=== PATIENT | female | born 1980 | race African-American/Black ===

== ENCOUNTER → 2023-07-02 08:01 | Outpatient (REF) | payer BC, SELFPAY ==
[2023-07-02] MEDS: LEXISCAN 0.400000000000000022 MG IV (10:37)
[2023-07-02] MEDS: FLUSH (NSS) 1 FLUSH IV (10:37)
== END ==
LOC: RCS 08:01
PROVIDERS: ATTENDING PHYSICIAN Nurse Practitioner Family
DX: M72.2 Plantar fascial fibromatosis (principal); R07.9 Chest pain, unspecified
CPT/HCPCS: 78452; 93017; A9500; J2785

== ENCOUNTER → 2024-07-07 14:12 | Outpatient (REF) | payer OTHER, BC, SELFPAY | LOC: WDC 14:12 | PROVIDERS: ATTENDING PHYSICIAN Nurse Practitioner Family | DX: Z12.31 Encounter for screening mammogram for malignant neoplasm of breast (principal) | CPT/HCPCS: 76642; 77063; 77067 ==

== ENCOUNTER → 2024-11-06 07:01 | Outpatient (REF) | payer OTHER, BC, SELFPAY | LOC: RAD 07:01 | PROVIDERS: ATTENDING PHYSICIAN Nurse Practitioner Family | DX: R10.9 Unspecified abdominal pain (principal) | CPT/HCPCS: 74177; Q9967 ==

== ENCOUNTER 2024-11-23 07:57 | Inpatient (IN) | payer OTHER, BC, SELFPAY ==
[2024-11-20 23:36] VITALS: BP 127/84
--- NOTE | 2024-11-21 00:21 | ED.GENMED ---
History of Present Illness
General
Chief Complaint: Abdominal Pain
Source: patient
Time Seen by Provider: 11/20/24 23:57
History of Present Illness
History of Present Illness:
43-year-old female presents emergency room complaint nausea vomiting diarrhea. Symptoms began at 3 PM. Also complaining of some abdominal discomfort and chest discomfort. No fever or chills. No recent travel. No recent antibiotic use. Patient
has been able to keep down any liquids. She has had C-sections and a cholecystectomy in the past.
Phy Exam
Physical Exam
Physical Exam:
General: Awake, Alert, Oriented X3. Appears uncomfortable from nausea
Vitals: unremarkable
Head: Atraumatic
Eyes: Pupils equal, EOMI
Throat: Airway intact, no exudates, dry mucosa
Neck: Trachea midline
Lungs: Clear and equal b/l
Heart: Regular rate, no murmurs
Abd: Soft, mildly tender bilateral upper abdominal quadrants, No pulsatile mass
Neuro: Nonfocal
Skin: Warm, dry, no rash
Extremities: pulses equal b/l, no edema
Course
Orders/Labs/Results
Orders:
Orders
11/20/24 23:42
Electrocardiogram (*1) Urgent
Reason for Study: Abdominal Pain
EKG- Treatment ONCE
IV Insert/Care/Rem.- Treatment PRN
Complete Blood Count/With Diff Urgent
Comprehensive Metabolic Panel Urgent
Lipase Urgent
Urinalysis Reflex To Culture Urgent
Date Specimen was Collected: 11/20/24
Time Specimen was Collected: 23:42
11/21/24 00:10
0.9% Sodium Chloride 1000 ml [Nss] 1,000 ml IV BOLUS
Ketorolac [Toradol] 15 mg IV NOW STA
Ondansetron Injectable [Zofran] 4 mg IV NOW STA
Test Result ONCE
11/21/24 00:38
HCG, Serum Qualitative Screen Urgent
11/21/24 00:58
CT Abd/pelvis W Iv Cont Urgent
Comment:
Reason For Exam: Upper abdominal pain
HYDROmorphone [Dilaudid] 0.5 mg IV NOW STA
11/21/24 01:55
Urine Microscopic Reflex Cult Urgent
11/21/24 02:27
Ampicillin/Sulbactam 3 grams IVPB NOW Ampicillin/Sulbactam 3 G [Unasyn] 3 gm 0.9% Sodium Chloride 100 ml [Nss] 100 ml IV NOW
Abnormal Lab Results
11/21/24 11/21/24
00:38 01:55
WBC 13.7 H 10^3/uL
(4.8-10.8)
RBC 5.53 H 10^6/uL
(4.20-5.40)
MCV 71.4 L fL
(81.0-99.0)
MCH 22.2 L pg
(27.0-31.0)
MCHC 31.1 L g/dL
(33.0-37.0)
RDW 15.8 H %
(11.5-14.5)
Plt Count 423 H 10^3/uL
(130-400)
Abs Immat Gran (auto) 0.1 H 10^3/uL
(0-0.05)
Absolute Neuts (auto) 13.1 H 10^3/uL
(1.4-6.5)
Absolute Lymphs (auto) 0.3 L 10^3/uL
(1.2-3.4)
Neutrophils % 95.3 H %
(42.2-75.2)
Lymphocytes % 2.5 L %
(20.5-51.1)
Monocytes % 1.5 L %
(1.7-9.3)
Chloride 108 H mmol/L
(98-107)
Glucose 114 H mg/dl
(70-99)
Calcium 10.7 H mg/dl
(8.4-10.2)
Ur Occult Blood Reflex 2+ A
(Negative)
Urine Albumin (Reflex) 1+ A
(Neg - Trace)
11/21/24 00:38
11/21/24 00:38
Vital Signs
Initial and Last Documented VS:
Initial Vital Signs
Temp Pulse Resp BP Pulse Ox
98.1 F 100 24 127/84 100
11/20/24 23:36 11/20/24 23:36 11/20/24 23:36 11/20/24 23:36 11/20/24 23:36
Last Documented Vital Signs
Temp Pulse Resp BP Pulse Ox
98.1 F 93 22 118/70 99
11/20/24 23:36 11/21/24 01:11 11/21/24 01:11 11/21/24 01:11 11/21/24 01:11
MDM/Problems Addressed
Differential Diagnosis Includes:
Viral gastroenteritis, gastritis, pancreatitis
MDM/Problems Addressed:
Patient's labs showing mild elevation white blood cell count. Chemistries are reassuring. CT shows colitis. Patient did not have significant improvement in her abdominal pain with Toradol and Zofran. She had mild improvement with 0.5 mg of
Dilaudid. Will director of radio services another 0.5 mg. Will hospitalize cover with IV antibiotics
*Radiology
Radiology exam reviewed: radiology read reviewed (vision report)
*Pulse Oximetry
SaO2: 100
Oxygen Mode of Delivery: Room air
Patient hypoxic: no
*EKG
Interpreted by ED Provider?: Yes
Heart Rate: 89
Rate: normal
Rhythm: sinus
Davison: normal axis
Interval: normal interval
QRS Pattern: normal QRS
Ischemia: no ischemia
*Field Assistant Interpretation
Rate: normal
Interpretation: normal
Rhythm: sinus
*Critical Care Note
Total Time (30-74mins, 75-104mins- exclusive of procedures): Not Applicable
ED Attending Note
-
Portions of this chart may have been created with voice recognition software.� Occasional wrong word or��sound alike� substitutions may have occurred due to the inherent limitations of voice recognition software.
Discharge Plan
Departure
Patient Disposition: Admit
Date of Disposition: 11/21/24
Time of Disposition: 02:27
Admit to: Med/Surg
Presentation/result/management discussed w/ accepting MD/DO: Hospitalist
Condition: Fair
Discharge Problem:
Abdominal pain, Colitis
Prescriptions:
No Action
sertraline 100 mg Tablet
100 mg PO DAILY
tramadol 50 mg Tablet
50 mg PO Q8H PRN (Reason: pain)
amlodipine 10 mg Tablet
10 mg PO DAILY
ibuprofen 200 mg Tablet
200 mg PO Q6H PRN (Reason: pain)
montelukast [Singulair] 10 mg Tablet
10 mg PO DAILY
albuterol sulfate [Ventolin HFA] 90 mcg/actuation Hfa Aerosol Inhaler
2 puff INHALATION QID PRN (Reason: Asthma)
gabapentin 100 mg Tablet
200 mg PO DAILY
Linzess 145 mcg Capsule
290 mcg PO DAILY
gabapentin 400 mg Tablet
400 mg PO HS
bupropion HCl [Wellbutrin SR] 100 mg Tablet Sustained-Release 12 Hr
100 mg PO BID
Referrals:
Dave Bullard CRNP [Family Provider, Family Practice]
Interventions
Interventions:
*Risk Screen - Suicide Last Done: 11/20/24 23:36
*General Assessment Last Done: 11/20/24 23:36
*Neglect/Abuse Screening Last Done: 11/20/24 23:36
*ED- Fall Risk Assessment Last Done: 11/20/24 23:36
*ED COVID-19 Vaccine History Last Done: 11/20/24 23:36
IG-Pynvou-Itpihfunxz Assessment Last Done: 11/21/24 00:42
Discharge Date and Time
Print Language: TURKMEN
[2024-11-21] MEDS: ZOFRAN 4 MG IV ×6 (00:33→23:49)
[2024-11-21] MEDS: TORADOL 15 MG IV ×3 (00:33→15:06)
[2024-11-21] MEDS: NSS 1000 IV ×4 (00:33→23:49)
[2024-11-21 01:00] LABS: Hematocrit 39.5 % (37.0-47.0); Hemoglobin 12.3 g/dL (12.0-16.0); Mean Corp Hgb Conc. 31.1 g/dL (33.0-37.0); Mean Corpuscular Volume 71.4 fL (81.0-99.0); Nucleated Red Blood Cells % 0 %; Platelet Count 423 10^3/uL (130-400); Red Cell Dist. Width 15.8 % (11.5-14.5)
[2024-11-21 01:07] LABS: HCG, Serum Qualitative Screen Negative
[2024-11-21 01:09] LABS: ALT (SGPT) 22 U/L (0-35); AST (SGOT) 26 U/L (14-36); Albumin 4.5 g/dl (3.5-5.0); Alkaline Phosphatase 94 U/L (38-126); Blood Urea Nitrogen 10 mg/dl (7-17); Calcium 10.7 mg/dl (8.4-10.2); Carbon Dioxide 23 mmol/L (22-30); Chloride 108 mmol/L (98-107); Glucose 114 mg/dl (70-99); Lipase 26 U/L (23-300); Potassium 4.3 mmol/L (3.5-5.1); Sodium 141 mmol/L (135-145); Total Protein 7.7 g/dl (6.3-8.2); eGFR > 60.00
[2024-11-21] MEDS: DILAUDID 0.5 MG IV ×5 (01:10→23:37)
[2024-11-21 01:11] VITALS: BP 118/70
[2024-11-21 02:08] LABS: Urine Character Clear (Clear)
--- NOTE | 2024-11-21 02:33 | HPS.HSE ---
Family Physician
-
Family Physician: JOSIANE Middleton
Chief Complaint
-
Abdominal pain
History of Present Illness
43-year-old female with past medical history significant for hypertension, mild to be an asthma, depression, history of chronic pain secondary to trigeminal neuralgia presents to the emergency department with acute onset of gastrointestinal symptoms
specifically abdominal pain nausea and vomiting with diarrhea.
Patient reports that been in usual state of health this a.m. She had fresh fruit from source that she had not had before this a.m. At around 3 PM this afternoon she started having projectile vomiting. It was nonbloody. Later on it did turn
bilious as she had incessant vomiting. He then reported epigastric abdominal discomfort that has been persistent since. He has had multiple rounds of watery stools without blood or mucus. She states she has had diarrhea up to about 6 times prior
to come to the emergency department but has not had any since she has been in the ED. She is unable to tolerate p.o. due to incessant nausea and vomiting as well as ongoing abdominal pain. She has not had any fevers or chills. She denies any
rash. She has no recent changes in medications. She has no recent travels and no sick contacts. History of IBS which has been improving over the last few months. No history of IBD.
In the emergency department, patient was afebrile, blood pressure was 120/70 with a pulse of 93 and she was satting 99% on room air. UA was unremarkable. She has a leukocytosis to 13.7, hemoglobin and platelets were normal. Electrolytes
BUN/creatinine were normal. CT of the abdomen and pelvis showing mild diffuse colonic wall thickening suggestive of diffuse colitis, no bowel obstruction. Appendix is unremarkable. Status post cholecystectomy with a normal pancreas and kidneys.
Medical History
Past Medical History
Past Medical History: Reports Asthma (Mild intermittent), HTN, Psychiatric (Depression) and Other (Dysmenorrhea, uterine fibroids, history of trigeminal neuralgia)
Past Surgical History: Reports Cholecystectomy and
Social History
Tobacco: Non-smoker
Alcohol: None
Drug: None
Family History
Family History: Not pertinent
Allergies / Home Medications
Allergies reflects when Allergies were last updated in [employer].
Home Medications with original date entered in [employer]
Allergy/Medication List:
Allergies
Allergy/AdvReac Type Severity Reaction Status Date / Time
No Known Allergies Allergy Verified 11/20/24 23:36
Home Medications
Benadryl Allergy 25 MG 1 tablet at bedtime as needed Orally Once a day Active
Sertraline HCl 100 MG 2 tablet Orally Once a day for 90 days Active
Pantoprazole Sodium 40 MG 1 tablet Orally Once a day PRN for 30 days Active
Gabapentin 200 mg tablets, 200 mg a.m., 20 mg p.m., half 100 mg at bedtime p.o.
Tramadol 50 mg tablets, 50 mg p.o. every 8 hours as needed
Ventolin HFA 108 (90 Base) MCG/ACT 2 puffs as needed Inhalation every 4 hrs for 30 days Active
Wegovy 1.7 MG/0.75ML 0.75 mL Subcutaneous Once weekly for 30 days Sep, Mar, Active
Wellbutrin SR 150 MG as directed Orally Twice a Day Active
Amlodipine 5 mg tablet, 5 mg p.o. daily
Review of Systems
-
Constitutional: Reports No Symptoms
EENT: Reports No Symptoms
Respiratory: Reports No Symptoms
Cardiac: Reports No Symptoms
Abdomen/GI: Reports Abdominal Pain, Nausea, Vomiting and Diarrhea
: Reports No Symptoms
Musculoskeletal: Reports No Symptoms
Skin: Reports No Symptoms
Neurological: Reports No Symptoms
Endocrine: Reports No Symptoms
Hematologic/Lymphatic: Reports No Symptoms
Psych: Reports No Symptoms
Physical Exam
Vital Signs
Vital Signs
Temp Pulse Resp BP Pulse Ox
98.1 F 93 22 118/70 99
11/20/24 23:36 11/21/24 01:11 11/21/24 01:11 11/21/24 01:11 11/21/24 01:11
Physical Exam
General: Well Developed, Well Nourished and No Apparent Distress
HEENT: NormoCephalic, Moist mucous membranes and Atraumatic
Respiratory: Clear
Cardiac: S1/S2 and Regular Rhythm; No Murmur or Rub
GI: Soft, Non Tender, Non Distended and Normal Bowel Sounds; No Organomegaly
Rectal: Deferred by Provider
Genito-urinary: Deferred by me
Musculoskeletal: No Clubbing, No Cyanosis and No Edema
Skin: No Rash
Neuro: Nonfocal/grossly intact
Laboratory Results
-
11/21/24 00:38
11/21/24 00:38
Laboratory Results
Total Bilirubin 0.6 mg/dl (0.2-1.3) 11/21/24 00:38
AST 26 U/L (14-36) 11/21/24 00:38
ALT 22 U/L (0-35) 11/21/24 00:38
Alkaline Phosphatase 94 U/L (38-126) 11/21/24 00:38
Lipase 26 U/L (23-300) 11/21/24 00:38
Data Reviewed
-
CT Scan: Report Reviewed by me
Lab Data: Labs Reviewed by me
Old Records: Reviewed
Impression/Plan
-
IMPRESSION:
43-year-old female who presents with acute abdominal symptoms including abdominal pain nausea vomiting and diarrhea, normal labs, no fevers. She has a mild leukocytosis to 13. CT scan shows colitis but otherwise unrevealing. Clinical picture is
consistent with acute gastroenteritis of toxic or viral etiology. Currently not tolerating p.o. but exam is otherwise benign.
PLAN:
Acute gastroenteritis - Suspect viral vs food poisoning. HD stable. No further diarrhea. Having dry heaves and abdominal pain. WBC 13. BNP, LFTs, Lipase WNL. CT suggestive of diffuse colitis.
- admit to med/surg observation
- continue IV NS for now given incessant vomiting
- PPI IV with famotidine IV HS
- antiemetics (QTc ok) prn
- pain control w/ acetaminophen, toradol, dilaudid prn
- continue her gabapentin as tolerated
- monitor off abx for now, no diverticulitis or focal colitis, trend cbc
- no stool sample for eval.
DVT PPX - lovenox sq
Code status - Full Code
[2024-11-21 02:38] LABS: Urine Squamous Cell >30 /LPF (Few)
[2024-11-21 02:39] LABS: Urine White Cell None Seen /HPF (0-5)
[2024-11-21 02:50] VITALS: BP 127/82
[2024-11-21] MEDS: UNASYN IV (02:58)
[2024-11-21 04:17] VITALS: BP 139/82
[2024-11-21 04:18] VITALS: BMI 29.5
--- NOTE | 2024-11-21 06:32 | PTCARENOTE ---
Pt arrived to unit at 0410 from ED on stretcher. Pt ambulated to bed without assist, gait steady. Pt AAOx3, pt c/o pain and some nausea-See MAY. IVF started. Pt reports 1 BM in ED, Enhanced Contact precautions maintained. Pt states no further needs
at this time. Bed in lowest position and locked, call vargas within reach.
[2024-11-21 07:03] VITALS: BP 110/74
[2024-11-21 07:38] LABS: Blood Urea Nitrogen 8 mg/dl (7-17); Calcium 10.0 mg/dl (8.4-10.2); Carbon Dioxide 23 mmol/L (22-30); Chloride 111 mmol/L (98-107); Estimated Creatinine Clearance 97 ml/min; Glucose 91 mg/dl (70-99); Magnesium 1.9 mg/dl (1.6-2.3); Potassium 4.3 mmol/L (3.5-5.1); Sodium 140 mmol/L (135-145); eGFR > 60.00
[2024-11-21 07:42] LABS: Hematocrit 35.6 % (37.0-47.0); Hemoglobin 11.2 g/dL (12.0-16.0); Mean Corp Hgb Conc. 31.5 g/dL (33.0-37.0); Mean Corpuscular Volume 71.5 fL (81.0-99.0); Platelet Count 397 10^3/uL (130-400); Red Cell Dist. Width 15.9 % (11.5-14.5)
[2024-11-21] MEDS: NSS (PRESERVATIVE FREE) 10 ML IV (08:13)
[2024-11-21] MEDS: PROTONIX IV 40 MG IV (08:13)
[2024-11-21] MEDS: WELLBUTRIN SR (12 hour sustained release) 150 MG PO (09:54)
[2024-11-21] MEDS: NORVASC 5 MG PO (09:54)
[2024-11-21] MEDS: NEURONTIN PO ×2 (10:00→23:38)
[2024-11-21 10:56] LABS: Iron 36 ug/dl (37-170)
[2024-11-21 11:05] LABS: Total Iron Binding Capacity 287 ug/dl (265-497)
[2024-11-21 11:30] LABS: Ferritin 21.4 ng/ml (6.24-137)
--- NOTE | 2024-11-21 13:17 | CM ---
Addendum entered by Ankita Carrasco RN 11/21/24 13:35:
Patient admitted under observational status. Observational letter provided and explained. The patient had no questions with regards to the letter.
Addendum entered by Ankita Carrasco RN 11/21/24 13:22:
[facility] [employer] Directive packet provided to the patient.
Original Note:
Reviewed the chart notes and spoke with the patient at the bedside. The patient resides with her spouse and two sons in a three story home with multiple steps to enter via a pathway. The patient reports only DME is a nebulizer. The patient has
had VN up in [place]. The patient reports no SNF. The patient confirmed her pharmacy of choice is [facility]. CM continues to be available to patient/family and is monitoring medical plan for needs at discharge.
Plan: Discharge to home when medically stable. No additional needs identified at this time.
[2024-11-21] MEDS: NEURONTIN 200 MG PO (13:42)
[2024-11-21 15:00] VITALS: BP 124/75
--- NOTE | 2024-11-21 16:07 | W.PN.HOSP.TC ---
Today's Communication/Plan
-
Acute gastroenteritis
Clear liquid diet
IV fluids.
If diarrhea check cultures and CT
Assessment / Plan
Assessment / Plan
Impression:
43-year-old female who presents with acute abdominal symptoms including abdominal pain nausea vomiting and diarrhea, normal labs, no fevers. She has a mild leukocytosis to 13. CT scan shows colitis but otherwise unrevealing. Clinical picture is
consistent with acute gastroenteritis of toxic or viral etiology. Currently not tolerating p.o. but exam is otherwise benign.
Acute gastroenteritis
Other conditions
Chronic iron deficiency anemia.
Leiomyomata uteri with excessive menopausal hemorrhage
Mild intermittent asthma.
Trigeminal neuralgia
Plan:
Acute gastroenteritis.
Persistent nausea and abdominal pain with no diarrhea.
CT scan of the abdomen and pelvis consistent with diffuse colitis
Mild leukocytosis with WBC of 13.
Normal liver function test and lipase.
Nontoxic-appearing with benign abdominal examination.
Continue conservative management with IV fluids and analgesia
Avoid opiates if possible.
If loose stools check for cultures, WBC and C. difficile
Clear liquid diet
Chronic iron deficiency anemia.
Recent colonoscopy normal.
Has leiomyomata uterus with excessive perimenstrual hemorrhage.
Monitor hemoglobin
Mild intermittent asthma
Continue nebs as needed.
Essential hypertension
On Norvasc.
Trigeminal neuralgia./Depression
Continue gabapentin, bupropion Zoloft
Anticipated Discharge: 24 - 48 hours
Subjective/Interval History
-
Date of Service: November 21, 2024
Objective Data
-
Labs:
Laboratory Results
11/21/24
06:08
WBC 10.6
Hgb 11.2 L
Hct 35.6 L
Plt Count 397
Sodium 140
Potassium 4.3
Chloride 111 H
Carbon Dioxide 23
BUN 8
Creatinine 0.7
Glucose 91
Calcium 10.0
Vital Signs:
Vital Signs
Temp Pulse Resp BP Pulse Ox
99.3 F 82 20 124/75 100
11/21/24 15:00 11/21/24 15:00 11/21/24 15:00 11/21/24 15:00 11/21/24 15:00
I&O
11/20/24 11/21/24 11/22/24
06:59 06:59 06:59
Intake Total 195 / 195
Balance 195 / 195
Physical Exam
-
General: Well Developed and No Apparent Distress
HEENT: Normocephalic, Atraumatic and Moist Mucous Membranes
Respiratory: Clear to Auscultation
Cardiac: Regular Rhythm and S1/S2; Negative Murmur, Rub or Gallop
GI: Soft, Nontender, Nondistended and Normal Bowel Sounds; Negative Organomegaly
Rectal: Deferred by Provider
Musculoskeletal: No Clubbing, No Cyanosis and No Edema
Skin: Negative Rash
Neuro: Nonfocal/Grossly Intact
[2024-11-21] MEDS: LOVENOX 40 MG SC (17:26)
[2024-11-21] MEDS: ZOLOFT 200 MG PO (20:14)
[2024-11-21] MEDS: WELLBUTRIN SR (12 hour sustained release) PO (20:14)
[2024-11-21 23:35] VITALS: BP 119/73
[2024-11-21] MEDS: NSS (PRESERVATIVE FREE) 8 ML IV (23:39)
[2024-11-21] MEDS: PEPCID 20 MG IV (23:39)
[2024-11-22] MEDS: TORADOL 15 MG IV ×3 (03:35→21:24)
[2024-11-22] MEDS: ZOFRAN 4 MG IV ×4 (03:52→17:38)
[2024-11-22 06:56] LABS: Hematocrit 33.7 % (37.0-47.0); Hemoglobin 10.7 g/dL (12.0-16.0); Mean Corp Hgb Conc. 31.8 g/dL (33.0-37.0); Mean Corpuscular Volume 72.0 fL (81.0-99.0); Nucleated Red Blood Cells % 0 %; Platelet Count 354 10^3/uL (130-400); Red Cell Dist. Width 15.9 % (11.5-14.5)
[2024-11-22 07:21] LABS: Blood Urea Nitrogen 3 mg/dl (7-17); Calcium 9.1 mg/dl (8.4-10.2); Carbon Dioxide 27 mmol/L (22-30); Chloride 110 mmol/L (98-107); Estimated Creatinine Clearance 97 ml/min; Glucose 72 mg/dl (70-99); Potassium 3.9 mmol/L (3.5-5.1); Sodium 139 mmol/L (135-145); eGFR > 60.00
[2024-11-22 07:37] VITALS: BP 127/87
[2024-11-22] MEDS: DILAUDID 0.5 MG IV ×3 (08:19→23:09)
[2024-11-22] MEDS: PROTONIX IV 40 MG IV (08:20)
[2024-11-22] MEDS: NSS (PRESERVATIVE FREE) 10 ML IV (08:20)
[2024-11-22] MEDS: NORVASC 5 MG PO (08:21)
[2024-11-22] MEDS: WELLBUTRIN SR (12 hour sustained release) 150 MG PO (08:21)
[2024-11-22] MEDS: NEURONTIN 200 MG PO (10:03)
[2024-11-22] MEDS: NSS 1000 IV ×2 (10:35→19:46)
--- NOTE | 2024-11-22 11:02 | W.PN.HOSP.TC ---
Today's Communication/Plan
-
Continue with IV fluid
Continue with PPI
Advance diet patient will try to decide if she wants to eat otherwise will trial liquids
Confirm home meds
Assessment / Plan
Assessment / Plan
Impression:
43-year-old female who presents with acute abdominal symptoms including abdominal pain nausea vomiting and diarrhea, normal labs, no fevers. She has a mild leukocytosis to 13. CT scan shows colitis but otherwise unrevealing. Clinical picture is
consistent with acute gastroenteritis of toxic or viral etiology. Currently not tolerating p.o. but exam is otherwise benign.
Acute gastroenteritis
Other conditions
Chronic iron deficiency anemia.
Leiomyomata uteri with excessive menopausal hemorrhage
Mild intermittent asthma.
Trigeminal neuralgia
Plan:
Acute gastroenteritis.
Persistent nausea and abdominal pain with no diarrhea.
CT scan of the abdomen and pelvis consistent with diffuse colitis
Mild leukocytosis with WBC of 13 which has resolved.
Normal liver function test and lipase.
Nontoxic-appearing with benign abdominal examination.
Continue conservative management with IV fluids and analgesia
Avoid opiates if possible.
If loose stools check for cultures, WBC and C. difficile
Advance diet to low residue. Patient can choose what she wants to eat and monitor for tolerance.
Chronic iron deficiency anemia.
Recent colonoscopy normal.
Has leiomyomata uterus with excessive perimenstrual hemorrhage.
Monitor hemoglobin
Mild intermittent asthma
Continue nebs as needed.
Essential hypertension
On Norvasc.
Trigeminal neuralgia./Depression
Continue gabapentin, bupropion Zoloft
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
DVT prophylaxis with Lovenox
Discussed with RN
Await medication reconciliation
Anticipated Discharge: Within 24 hours
Subjective/Interval History
-
Date of Service: November 22, 2024
States of nausea and vomiting
Denies diarrhea
Intermittent abdominal pain
Was able to tolerate some pudding with medications
Did not like broth for breakfast
Objective Data
-
Labs:
Laboratory Results
11/22/24
06:17
WBC 6.1
Hgb 10.7 L
Hct 33.7 L
Plt Count 354
Sodium 139
Potassium 3.9
Chloride 110 H
Carbon Dioxide 27
BUN 3 L
Creatinine 0.7
Glucose 72
Calcium 9.1
Vital Signs:
Vital Signs
Temp Pulse Resp BP Pulse Ox
98.2 F 84 16 127/87 99
11/22/24 07:37 11/22/24 07:37 11/22/24 07:37 11/22/24 07:37 11/22/24 07:37
I&O
11/21/24 11/22/24 11/23/24
06:59 06:59 06:59
Intake Total 1407 / 1407
Balance 1407 / 1407
Physical Exam
-
General: Well Developed and No Apparent Distress
HEENT: Normocephalic, Atraumatic and Moist Mucous Membranes
Respiratory: Clear to Auscultation
Cardiac: Regular Rhythm and S1/S2; Negative Murmur, Rub or Gallop
GI: Soft, Nontender, Nondistended and Normal Bowel Sounds; Negative Organomegaly
Rectal: Deferred by Provider
Musculoskeletal: No Clubbing, No Cyanosis and No Edema
Skin: Negative Rash
Neuro: Awake, Alert, Oriented, AO x 3 and Nonfocal/Grossly Intact; Negative Slurred Speech or Facial Droop
Psych: Calm
Data Reviewed
-
Total Time Spent with Patient (in minutes): 55
[2024-11-22 16:20] VITALS: BP 135/79
[2024-11-22] MEDS: LOVENOX 40 MG SC (17:13)
[2024-11-22] MEDS: ZOLOFT 200 MG PO (20:58)
[2024-11-22] MEDS: WELLBUTRIN SR (12 hour sustained release) PO ×2 (20:58→23:32)
[2024-11-22] MEDS: NSS (PRESERVATIVE FREE) 8 ML IV (20:59)
[2024-11-22] MEDS: PEPCID 20 MG IV (20:59)
[2024-11-22] MEDS: NEURONTIN 400 MG PO (20:59)
[2024-11-22] MEDS: COMPAZINE 5 MG IV (22:02)
[2024-11-22 23:15] VITALS: BP 128/81
[2024-11-23] MEDS: NSS 1000 IV (05:17)
[2024-11-23 07:38] VITALS: BP 138/82
[2024-11-23 08:09] LABS: Hematocrit 33.8 % (37.0-47.0); Hemoglobin 10.4 g/dL (12.0-16.0); Mean Corp Hgb Conc. 30.8 g/dL (33.0-37.0); Mean Corpuscular Volume 71.0 fL (81.0-99.0); Nucleated Red Blood Cells % 0 %; Platelet Count 316 10^3/uL (130-400); Red Cell Dist. Width 15.7 % (11.5-14.5)
[2024-11-23] MEDS: WELLBUTRIN SR (12 hour sustained release) 100 MG PO ×2 (08:10→12:41)
[2024-11-23] MEDS: NEURONTIN 200 MG PO (08:10)
[2024-11-23] MEDS: DILAUDID 0.5 MG IV ×2 (08:10→14:58)
[2024-11-23] MEDS: PROTONIX IV 40 MG IV ×2 (08:11→19:23)
[2024-11-23] MEDS: NORVASC 10 MG PO (08:11)
[2024-11-23] MEDS: NSS (PRESERVATIVE FREE) 10 ML IV ×2 (08:11→19:23)
[2024-11-23] MEDS: ZOFRAN 4 MG IV ×2 (08:12→21:29)
[2024-11-23 08:38] LABS: ALT (SGPT) 47 U/L (0-35); AST (SGOT) 116 U/L (14-36); Albumin 3.4 g/dl (3.5-5.0); Alkaline Phosphatase 77 U/L (38-126); Blood Urea Nitrogen 6 mg/dl (7-17); Calcium 9.1 mg/dl (8.4-10.2); Carbon Dioxide 25 mmol/L (22-30); Chloride 109 mmol/L (98-107); Estimated Creatinine Clearance 97 ml/min; Glucose 69 mg/dl (70-99); Potassium 3.8 mmol/L (3.5-5.1); Sodium 138 mmol/L (135-145); Total Protein 6.3 g/dl (6.3-8.2); eGFR > 60.00
[2024-11-23] MEDS: BETAMETHASONE VALERATE 0.1% CREAM 1 APPLIC TOPICAL ×2 (10:01→19:22)
[2024-11-23] MEDS: D5LR 1000 IV ×2 (10:01→19:22)
[2024-11-23 10:09] LABS: Glucose - Point of Care 73 mg/dl (70-99)
--- NOTE | 2024-11-23 10:50 | W.PN.HOSP.TC ---
Today's Communication/Plan
-
Limit opioids. Frequency decreased.
Abdominal x-ray pending
Change fluids to D5 LR
May need laxatives
Assessment / Plan
Assessment / Plan
Impression:
43-year-old female who presents with acute abdominal symptoms including abdominal pain nausea vomiting and diarrhea, normal labs, no fevers. She has a mild leukocytosis to 13. CT scan shows colitis but otherwise unrevealing. Clinical picture is
consistent with acute gastroenteritis of toxic or viral etiology. Currently not tolerating p.o. but exam is otherwise benign.
Acute gastroenteritis associated with severe nausea and vomiting
Mild transaminitis
Other conditions
Chronic iron deficiency anemia.
Leiomyomata uteri with excessive menopausal hemorrhage
Mild intermittent asthma.
Trigeminal neuralgia
History of cholecystectomy
Plan:
Acute gastroenteritis.
Persistent nausea and abdominal pain with no diarrhea.
CT scan of the abdomen and pelvis consistent with diffuse colitis
Mild leukocytosis with WBC of 13 which has resolved.
Normal liver function test and lipase.
Continue conservative management with IV fluids and analgesia
Avoid opiates if possible.
If loose stools check for cultures, WBC and C. difficile
Remains with nausea and vomiting not able to tolerate much p.o. intake
Change fluids to D5 with LR
Check abdominal x-ray.
Mild transaminitis
Bilirubin normal. AST ALT mildly bumped
Monitor for now.
Chronic iron deficiency anemia.
Recent colonoscopy normal.
Has leiomyomata uterus with excessive perimenstrual hemorrhage.
Monitor hemoglobin
Mild intermittent asthma
Continue nebs as needed.
Essential hypertension
On Norvasc.
Trigeminal neuralgia./Depression
Continue gabapentin, bupropion Zoloft
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
DVT prophylaxis with Lovenox
Discussed with RN
Anticipated Discharge: > 48 hours
Subjective/Interval History
-
Date of Service: November 23, 2024
States of epigastric abdominal pain after episode of nausea and vomiting
Remains with nausea. Interval episode vomiting with bilious content. Denies any right upper quadrant abdominal pain.
No bowel movements
Objective Data
-
Labs:
Laboratory Results
11/23/24
07:32
WBC 5.8
Hgb 10.4 L
Hct 33.8 L
Plt Count 316
Sodium 138
Potassium 3.8
Chloride 109 H
Carbon Dioxide 25
BUN 6 L
Creatinine 0.7
Glucose 69 L
Calcium 9.1
Total Bilirubin 0.5
AST 116 H
ALT 47 H
Alkaline Phosphatase 77
Vital Signs:
Vital Signs
Temp Pulse Resp BP Pulse Ox
97.9 F 77 16 138/82 98
11/23/24 07:38 11/23/24 07:38 11/23/24 07:38 11/23/24 07:38 11/23/24 07:38
I&O
11/22/24 11/23/24 11/24/24
06:59 06:59 06:59
Intake Total 1407 / 1407 1560 / 1560
Balance 1407 / 1407 1560 / 1560
Physical Exam
-
General: Well Developed and No Apparent Distress
HEENT: Normocephalic, Atraumatic and Moist Mucous Membranes
Respiratory: Clear to Auscultation
Cardiac: Regular Rhythm and S1/S2; Negative Murmur, Rub or Gallop
GI: Soft, Nondistended, Normal Bowel Sounds and Tender (Epigastric. No pain right upper quadrant upon superficial and deep palpation.); Negative Organomegaly
Rectal: Deferred by Provider
Musculoskeletal: No Clubbing, No Cyanosis and No Edema
Skin: Negative Rash
Neuro: Awake, Alert, Oriented, AO x 3 and Nonfocal/Grossly Intact; Negative Slurred Speech or Facial Droop
Psych: Calm
Data Reviewed
-
Total Time Spent with Patient (in minutes): 55
[2024-11-23 12:33] LABS: Glucose - Point of Care 107 mg/dl (70-99)
[2024-11-23] MEDS: TORADOL 15 MG IV ×2 (13:33→23:54)
[2024-11-23 15:23] VITALS: BP 132/85
[2024-11-23 17:06] LABS: Glucose - Point of Care 82 mg/dl (70-99)
[2024-11-23] MEDS: LOVENOX 40 MG SC (17:33)
--- NOTE | 2024-11-23 21:19 | W.PN.UPDATE ---
Update Note
Progress Note Update
Patient c/o frequency, urgency, pain and burning with urination. Ordered UA w/reflex. Results appear to be unreliable to confirm UTI. Requested repeat UA if patient is still having symptoms.
[2024-11-23] MEDS: ZOLOFT 200 MG PO (21:29)
[2024-11-23] MEDS: NEURONTIN 400 MG PO (21:29)
[2024-11-23] MEDS: NSS (PRESERVATIVE FREE) 8 ML IV (21:30)
[2024-11-23] MEDS: PEPCID 20 MG IV (21:31)
[2024-11-23 21:58] LABS: Glucose - Point of Care 73 mg/dl (70-99)
[2024-11-23 23:00] VITALS: BP 137/80
[2024-11-23 23:53] LABS: Glucose - Point of Care 80 mg/dl (70-99)
[2024-11-24 00:02] LABS: Urine Character Clear (Clear)
[2024-11-24 01:06] LABS: Urine Squamous Cell >30 /LPF (Few)
[2024-11-24 01:08] LABS: Urine Red Blood Cell 30-40 /HPF (0-2)
[2024-11-24 03:30] LABS: Glucose - Point of Care 79 mg/dl (70-99)
[2024-11-24] MEDS: D5LR 1000 IV (05:24)
[2024-11-24] MEDS: ZOFRAN 4 MG IV ×2 (06:13→14:43)
[2024-11-24] MEDS: TORADOL 15 MG IV (06:15)
[2024-11-24 07:03] LABS: Hematocrit 35.2 % (37.0-47.0); Hemoglobin 10.8 g/dL (12.0-16.0); Mean Corp Hgb Conc. 30.7 g/dL (33.0-37.0); Mean Corpuscular Volume 70.5 fL (81.0-99.0); Nucleated Red Blood Cells % 0 %; Platelet Count 356 10^3/uL (130-400); Red Cell Dist. Width 15.6 % (11.5-14.5)
[2024-11-24 07:37] LABS: ALT (SGPT) 48 U/L (0-35); AST (SGOT) 77 U/L (14-36); Albumin 3.6 g/dl (3.5-5.0); Alkaline Phosphatase 81 U/L (38-126); Blood Urea Nitrogen 3 mg/dl (7-17); Calcium 9.6 mg/dl (8.4-10.2); Carbon Dioxide 28 mmol/L (22-30); Chloride 106 mmol/L (98-107); Estimated Creatinine Clearance 97 ml/min; Glucose 84 mg/dl (70-99); Potassium 3.4 mmol/L (3.5-5.1); Sodium 138 mmol/L (135-145); Total Protein 6.4 g/dl (6.3-8.2); eGFR > 60.00
[2024-11-24 07:45] VITALS: BP 141/80
[2024-11-24 08:13] LABS: Glucose - Point of Care 85 mg/dl (70-99)
[2024-11-24] MEDS: NORVASC 10 MG PO (08:23)
[2024-11-24] MEDS: WELLBUTRIN SR (12 hour sustained release) 100 MG PO (08:23)
[2024-11-24] MEDS: NEURONTIN 200 MG PO (08:23)
[2024-11-24] MEDS: NSS (PRESERVATIVE FREE) 10 ML IV ×2 (08:24→21:13)
[2024-11-24] MEDS: PROTONIX IV 40 MG IV ×2 (08:24→21:13)
[2024-11-24] MEDS: BETAMETHASONE VALERATE 0.1% CREAM 1 APPLIC TOPICAL ×2 (08:28→21:21)
--- NOTE | 2024-11-24 09:26 | PTCARENOTE ---
Pt requesting to speak with this AM about urine studies and BUN level. K 3.4. made aware, no new orders at this time.
[2024-11-24 09:56] LABS: Glycohemoglobin (HgbA1c) 4.9 % (4.0-5.6)
[2024-11-24] MEDS: DILAUDID 0.5 MG IV ×3 (10:13→22:22)
--- NOTE | 2024-11-24 11:35 | CM ---
Reviewed the chart notes. Patient continues on low residue diet. CM continues to be available to patient/family and is monitoring medical plan for needs at discharge.
Plan: Discharge to home when medically stable. No needs identified at this time.
--- NOTE | 2024-11-24 12:06 | W.PN.HOSP.TC ---
Today's Communication/Plan
-
Stop Toradol
IV PPI
US abdomen
Follow LFT
GI evaluation
Antibiotics for uti
Assessment / Plan
Assessment / Plan
Impression:
43-year-old female who presents with acute abdominal symptoms including abdominal pain nausea vomiting and diarrhea, normal labs, no fevers. She has a mild leukocytosis to 13. CT scan shows colitis but otherwise unrevealing. Clinical picture is
consistent with acute gastroenteritis of toxic or viral etiology. Currently not tolerating p.o. but exam is otherwise benign.
Acute gastroenteritis associated with severe nausea and vomiting
Mild transaminitis
Other conditions
Chronic iron deficiency anemia.
Leiomyomata uteri with excessive menopausal hemorrhage
Mild intermittent asthma.
Trigeminal neuralgia
History of cholecystectomy
Plan:
Concern for Acute gastroenteritis.
Persistent nausea and abdominal pain with no diarrhea.
Mildly elevated transaminases with normal lipase
Reports significant NSAID use as OP
CT scan of the abdomen and pelvis consistent with diffuse colitis
Mild leukocytosis with WBC of 13 which has resolved.
No diarrhea or BMS with low oral intake since admitted
Follow abd xray with no evidence for constipation or obstruction
Stop Toradol
IV PPI
US abdomen
Follow LFT
GI evaluation
Non complicated UTI
Ucx pending
Ceftriaxone empirically initiated on 11/24
Chronic iron deficiency anemia.
Recent colonoscopy normal.
Has leiomyomata uterus with excessive perimenstrual hemorrhage.
Monitor hemoglobin
Mild intermittent asthma
Continue nebs as needed.
Essential hypertension
On Norvasc.
Trigeminal neuralgia./Depression
Continue gabapentin, bupropion Zoloft
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
DVT prophylaxis with Lovenox
Discussed with RN
Anticipated Discharge: 24 - 48 hours
Subjective/Interval History
-
Date of Service: November 24, 2024
Objective Data
-
Labs:
Laboratory Results
11/24/24
06:40
WBC 4.8
Hgb 10.8 L
Hct 35.2 L
Plt Count 356
Sodium 138
Potassium 3.4 L
Chloride 106
Carbon Dioxide 28
BUN 3 L
Creatinine 0.7
Glucose 84
Calcium 9.6
Total Bilirubin 0.4
AST 77 H
ALT 48 H
Alkaline Phosphatase 81
Vital Signs:
Vital Signs
Temp Pulse Resp BP Pulse Ox
99.6 F 76 16 141/80 96
11/24/24 07:45 11/24/24 08:23 11/24/24 07:45 11/24/24 08:23 11/24/24 11:05
I&O
11/23/24 11/24/24 11/25/24
06:59 06:59 06:59
Intake Total 1560 / 1560 2500 / 2500
Balance 1560 / 1560 2500 / 2500
Physical Exam
-
General: Well Developed and No Apparent Distress
HEENT: Normocephalic, Atraumatic and Moist Mucous Membranes
Respiratory: Clear to Auscultation
Cardiac: Regular Rhythm and S1/S2; Negative Murmur, Rub or Gallop
GI: Soft, Nontender, Nondistended and Normal Bowel Sounds; Negative Organomegaly
Rectal: Deferred by Provider
Musculoskeletal: No Clubbing, No Cyanosis and No Edema
Skin: Negative Rash
Neuro: Nonfocal/Grossly Intact
[2024-11-24] MEDS: WELLBUTRIN SR (12 hour sustained release) PO (12:19)
[2024-11-24 12:59] LABS: Glucose - Point of Care 83 mg/dl (70-99)
--- NOTE | 2024-11-24 13:43 | CON.GI ---
Addendum entered and electronically signed by Annie Dias MD 11/24/24 18:51:
I saw and examined the patient.
The ASSISTANT TRACK COACH or PA's note was reviewed and I agree with the note.
Comment: 43-year-old female with history of hypertension, asthma, trigeminal neuralgia, thalassemia and history of fibroids presenting with sudden onset nausea, vomiting and diarrhea after eating a nectarine followed by abdominal
discomfort. No previous similar episodes. Since , has not been able to tolerate anything by mouth and has been throwing up, bilious vomiting without any blood. Diarrhea persisted only for a few hours and stopped night. Prior to
this she was doing well. History of acid reflux but has been under control and takes PPI as needed. She has history of chronic constipation, was taking Linzess 145 mcg daily with good effect until 2 months ago and then she ran out of prescription
and stopped it. Has not had significant upper GI symptoms. She does take ibuprofen 800 mg every 8 hours during her menstrual period's and she takes it 10 days in a month. Last time she took it was last Sunday, a day prior to the symptoms
started. In the emergency room, she was noted to have drop in hemoglobin from 12-10.4, microcytosis noted but she does have history of thalassemia. Mildly elevated transaminases noted.
CT scan of the abdomen and pelvis with IV contrast showing mild colitis of the transverse and descending colon but otherwise unremarkable.
Previous colonoscopies in 2022 and 2021 unremarkable.
No history of smoking, alcohol or marijuana use.
-Acute onset of nausea, vomiting, diarrhea followed by abdominal pain, nausea and vomiting still persisting
Rule out viral gastroenteritis
She does have significant NSAID use
Given ongoing nausea and vomiting episodes, will do upper endoscopy to evaluate.
Currently on clear liquid diet
Continue Protonix 40 mg IV twice daily for now.
Will follow-up on the above
- She is on ceftriaxone for questionable UTI
- Chronic constipation, suggested going back on the Linzess after discharge. She can take MiraLAX 1 capful daily until she gets the Linzess prescription.
Original Note:
Consultation
-
Date/Time Consultation Requested: 11/24/24 1206
Date/Time Consultation Performed: 11/24/24 1343
Requesting Provider: Dr. Lopez
Performing Provider: Dr. Dias/JOSIANE Gutierrez
Reason for Consultation: N/V abd pain
Medical History
Chief Complaint / HPI
Chief Complaint: abd pain
History of Present Illness:
43-year-old female with past medical history of hypertension, asthma, depression, chronic pain secondary to trigeminal neuralgia, thalassemia, fibroids of the uterus and menorrhagia presents the emergency room with acute onset of abdominal pain,
nausea vomiting and diarrhea. We are asked to evaluate after patient has not resolved with nausea, inability to tolerate p.o. with epigastric pain. The patient states that on she was eating a nectarine she states shortly afterwards she
started acute onset of nausea with projectile vomiting and immediately followed by diarrhea. She states that this continued until 11 PM that evening. She had episodes where she felt near syncope however never did pass out. She was extremely weak.
After multiple episodes with epigastric gnawing and aching she presented to the emergency room for further evaluation. She had no further episodes of diarrhea since arriving in the emergency department. She had persistent nausea with episodes of
bilious vomiting after multiple attempts at clears with trials of advancement of diet. She does have a history of significant ibuprofen use 800 mg every 8 hours for approximately 10 days during her menstrual cycle which ended the day prior to onset
of symptoms. She denies any recent sick contacts, changes in medication, recent travel or spoiled food. Other than the nectarine that day she had not had anything to eat and then her home cooked food the day prior. No other people are sick around
her. She did have some chills. Denies any fevers, melena, hematochezia, dysphagia or odynophagia. No early satiety or unintended weight loss. She did have a mild increase in temp today of 99.6. Some mild AST/ALT elevation that is downtrending.
No leukocytosis. She does state that as soon as she tries to eat or drink anything it gets to her stomach and then she has a burning/gnawing sensation with significant discomfort. And she feels the need to regurgitate or vomit.
Past Medical History
Past Medical History: Other (Hypertension, asthma, depression, chronic pain, trigeminal neuralgia, thalassemia, anemia, fibroids, menorrhagia)
Past Surgical History: Other (Cholecystectomy, uterine fibroid removal)
Social History
Tobacco: Non-Smoker
Alcohol: None
Drug: None
Personal:
Living: With Family
Employment: Employed
Family History
Family History: Other (Paternal uncle colon cancer)
Allergies / Home Medications
Allergy/AdvReac Type Severity Reaction Status Date / Time
No Known Allergies Allergy Verified 11/20/24 23:36
�Medication �Instructions �Recorded
albuterol sulfate 90 mcg/actuation 2 puff inhalation QID PRN Asthma 09/27/21
aerosol inhaler (Ventolin HFA)
amlodipine 10 mg tablet 10 mg PO DAILY Blood Pressure 09/27/21
gabapentin 100 mg tablet 200 mg PO DAILY Neurological 09/27/21
Condition
ibuprofen 200 mg tablet 800 mg PO Q8H Pain 09/27/21
sertraline 100 mg tablet 200 mg PO DAILY Depression 09/27/21
tramadol 50 mg tablet 50 mg PO Q8H PRN pain 09/27/21
bupropion HCl 100 mg tablet,12 hr 100 mg PO BID Depression 10/05/22
sustained-release (Wellbutrin SR)
gabapentin 400 mg tablet 400 mg PO HS Neurological Condition 10/05/22
Review of Systems
-
All other systems: A 12 pt ROS was Negative except as stated above in HPI
Vital Signs
Temp Pulse Resp BP Pulse Ox
99.6 F 76 16 141/80 96
11/24/24 07:45 11/24/24 08:23 11/24/24 07:45 11/24/24 08:23 11/24/24 11:05
Physical Exam
Exam
General: No Apparent Distress
HEENT: Normocephalic
Respiratory: Clear
Cardiac: Regular Rhythm
GI: Soft, Non Distended, Normal Bowel Sounds and Tender (Epigastric)
Musculoskeletal: No Edema
Skin: Warm and Dry
Neuro: AO x 3
Psych: Calm
Results
WBC 4.8 10^3/uL (4.8-10.8) 11/24/24 06:40
Hgb 10.8 g/dL (12.0-16.0) L 11/24/24 06:40
Hct 35.2 % (37.0-47.0) L 11/24/24 06:40
MCV 70.5 fL (81.0-99.0) L 11/24/24 06:40
Plt Count 356 10^3/uL (130-400) 11/24/24 06:40
Absolute Neuts (auto) 2.7 10^3/uL (1.4-6.5) 11/24/24 06:40
Sodium 138 mmol/L (135-145) 11/24/24 06:40
Potassium 3.4 mmol/L (3.5-5.1) L 11/24/24 06:40
Chloride 106 mmol/L (98-107) 11/24/24 06:40
Carbon Dioxide 28 mmol/L (22-30) 11/24/24 06:40
BUN 3 mg/dl (7-17) L 11/24/24 06:40
Creatinine 0.7 mg/dL (0.6-1.0) 11/24/24 06:40
Calcium 9.6 mg/dl (8.4-10.2) 11/24/24 06:40
Total Bilirubin 0.4 mg/dl (0.2-1.3) 11/24/24 06:40
AST 77 U/L (14-36) H 11/24/24 06:40
ALT 48 U/L (0-35) H 11/24/24 06:40
Alkaline Phosphatase 81 U/L (38-126) 11/24/24 06:40
Lipase 26 U/L (23-300) 11/21/24 00:38
Diagnostic Image Results:
CT abdomen and pelvis with IV contrast:
IMPRESSION:
1. Mild colitis involving the transverse and descending colon. No pelvic free fluid. Unremarkable appendix.
2. Additional findings above.
A preliminary interpretation was provided by [facility] teleradiology service. The above report agrees with the initial interpretation.
Prior GI Procedures:
EGD: Never
Colonoscopy: 10/05/2022 ([facility]) - The examined portion of the ileum was normal.
- The entire examined colon is normal. Biopsied.
- Internal hemorrhoids.
Colonoscopy 09/27/2021 ([facility]) - Preparation of the colon was fair.
- The examined portion of the ileum was normal.
- The entire examined colon is normal. Biopsied.
- Internal hemorrhoids.
- Stool in the entire examined colon.
Assessment / Plan
-
43-year-old female with past medical history of hypertension, asthma, depression, chronic pain secondary to trigeminal neuralgia, thalassemia, fibroids of the uterus and menorrhagia presents the emergency room with acute onset of abdominal pain,
nausea vomiting and diarrhea. We are asked to evaluate after patient has not resolved with nausea, inability to tolerate p.o. with epigastric pain. The patient has been kept on pantoprazole 40 mg IV twice daily. Also famotidine 20 mg IV at
bedtime. CT abdomen pelvis with IV contrast on 11/23/2024 shows mild colitis involving transverse and descending colon. Patient without any further episodes of diarrhea since arrival in the ER.
Impression:
Nausea/vomiting, inability to tolerate p.o. despite bowel rest, PPI twice daily IV and IV H2 ric
Diarrhea-> colitis on CT imaging no further episodes
Significant NSAID use, ibuprofen 800 mg every 8 x 10 days last dose on 11/19/2024
Mildly elevated AST/ALT, improving
History of thalassemia
History of menorrhagia secondary to fibroids
Plan:
-Continue Pantoprazole 40 mg IV BID and Pepcid IV hs
-Discussed possibility of EGD tomorrow
-US Abd pending for elevated LFTs
-Trend LFTs, if with increase can broaden workup
-On Ceftriaxone for UTI
-NPO after midnight incase EGD scheduled.
-
-
Thank you for consultation and allowing me to participate in the patient's care. Please call the education administrative assistant GI physician during the after hours with any questions or concerns.
[2024-11-24] MEDS: ROCEPHIN 1000 MG IV (14:32)
[2024-11-24] MEDS: STERILE WATER FOR INJECTION 10 ML IV (14:33)
[2024-11-24] MEDS: D5LR IV (15:15)
[2024-11-24] MEDS: D5/0.45%NSS with KCL 40 MEQ 1000 IV (15:21)
[2024-11-24 15:26] VITALS: BP 150/91
[2024-11-24 17:32] LABS: Glucose - Point of Care 70 mg/dl (70-99)
[2024-11-24] MEDS: LOVENOX 40 MG SC (17:40)
[2024-11-24] MEDS: NSS (PRESERVATIVE FREE) 8 ML IV (21:19)
[2024-11-24] MEDS: PEPCID 20 MG IV (21:20)
[2024-11-24] MEDS: ZOLOFT PO (21:20)
[2024-11-24] MEDS: NEURONTIN PO (21:20)
[2024-11-24 21:37] LABS: Glucose - Point of Care 74 mg/dl (70-99)
[2024-11-24 23:45] VITALS: BP 134/88
[2024-11-25] VITALS (10 sets, daily range): BP systolic 19–149; BP diastolic 39–88
[2024-11-25 05:43] LABS: Glucose - Point of Care 87 mg/dl (70-99)
[2024-11-25] MEDS: D5/0.45%NSS with KCL 40 MEQ 1000 IV (05:45)
[2024-11-25 07:41] LABS: Hematocrit 35.9 % (37.0-47.0); Hemoglobin 11.2 g/dL (12.0-16.0); Mean Corp Hgb Conc. 31.2 g/dL (33.0-37.0); Mean Corpuscular Volume 71.7 fL (81.0-99.0); Nucleated Red Blood Cells % 0 %; Platelet Count 353 10^3/uL (130-400); Red Cell Dist. Width 15.5 % (11.5-14.5)
[2024-11-25 08:12] LABS: ALT (SGPT) 46 U/L (0-35); AST (SGOT) 52 U/L (14-36); Albumin 3.7 g/dl (3.5-5.0); Alkaline Phosphatase 80 U/L (38-126); Blood Urea Nitrogen 3 mg/dl (7-17); Calcium 9.8 mg/dl (8.4-10.2); Carbon Dioxide 26 mmol/L (22-30); Chloride 106 mmol/L (98-107); Estimated Creatinine Clearance 97 ml/min; Glucose 76 mg/dl (70-99); Potassium 3.9 mmol/L (3.5-5.1); Sodium 138 mmol/L (135-145); Total Protein 6.6 g/dl (6.3-8.2); eGFR > 60.00
[2024-11-25] MEDS: NORVASC PO (08:49)
[2024-11-25] MEDS: NEURONTIN PO ×2 (08:49→21:48)
[2024-11-25] MEDS: BETAMETHASONE VALERATE 0.1% CREAM 1 APPLIC TOPICAL ×2 (08:49→20:44)
[2024-11-25] MEDS: PROTONIX IV 40 MG IV ×2 (08:50→20:35)
[2024-11-25] MEDS: WELLBUTRIN SR (12 hour sustained release) PO ×2 (08:51→12:48)
[2024-11-25] MEDS: NSS (PRESERVATIVE FREE) 10 ML IV ×2 (08:51→20:35)
--- NOTE | 2024-11-25 11:40 | W.PN.UPDATE ---
Update Note
Progress Note Update
EGD done
Normal esopahgus bx'd r/o EoE
Gastric erythema bx'd r/o HP
Normal duodenum. Bx'd r/o celiac
REC:
Await path
Attempt regular diet
Probable resolving viral gastroenteritis
[2024-11-25] MEDS: ZOFRAN 4 MG IV ×3 (12:07→18:37)
[2024-11-25 12:11] LABS: Glucose - Point of Care 79 mg/dl (70-99)
[2024-11-25 12:52] LABS: Glucose - Point of Care 75 mg/dl (70-99)
--- NOTE | 2024-11-25 13:26 | CM ---
Reviewed the chart notes and spoke with the patient at the bedside. Patient s/p endoscopy today. CM continues to be available to patient/family and is monitoring medical plan for needs at discharge.
Plan: Discharge to home when medically stable. No needs anticipated at this time.
[2024-11-25] MEDS: ROCEPHIN 1000 MG IV (13:38)
[2024-11-25] MEDS: STERILE WATER FOR INJECTION 10 ML IV (13:38)
--- NOTE | 2024-11-25 14:28 | W.PN.HOSP.TC ---
Today's Communication/Plan
-
Unremarkable EGD
Advance diet
Assessment / Plan
Assessment / Plan
Impression:
43-year-old female who presents with acute abdominal symptoms including abdominal pain nausea vomiting and diarrhea, normal labs, no fevers. She has a mild leukocytosis to 13. CT scan shows colitis but otherwise unrevealing. Clinical picture is
consistent with acute gastroenteritis of toxic or viral etiology. Currently not tolerating p.o. but exam is otherwise benign.
Acute gastroenteritis associated with severe nausea and vomiting
Mild transaminitis
Other conditions
Chronic iron deficiency anemia.
Leiomyomata uteri with excessive menopausal hemorrhage
Mild intermittent asthma.
Trigeminal neuralgia
History of cholecystectomy
Plan:
Concern for Acute gastroenteritis.
Persistent nausea and abdominal pain with no diarrhea.
Mildly elevated transaminases with normal lipase
Reports significant NSAID use as OP
CT scan of the abdomen and pelvis consistent with diffuse colitis
Mild leukocytosis with WBC of 13 which has resolved.
No diarrhea or BMS with low oral intake since admitted
Follow abd xray with no evidence for constipation or obstruction
EGD 11/25: Normal esophagus, gastric erythema, normal duodenum
Continue PPI
Attempt to advance diet
Attempt to wean off antiemetics
Mild elevation of transaminases, stable
Ultrasound normal
Non complicated UTI suspected secondary to dysuria
Empiric antibiotics ceftriaxone initiated 11/24
Urine cultures with no growth
Observe for antibiotics, ceftriaxone discontinued on 11/15
Chronic iron deficiency anemia.
Recent colonoscopy normal.
Has leiomyomata uterus with excessive perimenstrual hemorrhage.
Monitor hemoglobin
Mild intermittent asthma
Continue nebs as needed.
Essential hypertension
On Norvasc.
Trigeminal neuralgia./Depression
Continue gabapentin, bupropion Zoloft
DVT prophylaxis with Lovenox
Anticipated Discharge: 24 - 48 hours
Subjective/Interval History
-
Date of Service: November 25, 2024
Objective Data
-
Labs:
Laboratory Results
11/25/24
06:54
WBC 4.4 L
Hgb 11.2 L
Hct 35.9 L
Plt Count 353
Sodium 138
Potassium 3.9
Chloride 106
Carbon Dioxide 26
BUN 3 L
Creatinine 0.7
Glucose 76
Calcium 9.8
Total Bilirubin 0.5
AST 52 H
ALT 46 H
Alkaline Phosphatase 80
Vital Signs:
Vital Signs
Temp Pulse Resp BP Pulse Ox
97.4 F 91 15 110/67 100
11/25/24 12:10 11/25/24 12:20 11/25/24 12:20 11/25/24 12:20 11/25/24 12:20
I&O
11/24/24 11/25/24 11/26/24
06:59 06:59 06:59
Intake Total 2500 / 2500 0 / 2190
Balance 2500 / 2500 2190 / 219
Physical Exam
-
General: Well Developed and No Apparent Distress
HEENT: Normocephalic, Atraumatic and Moist Mucous Membranes
Respiratory: Clear to Auscultation
Cardiac: Regular Rhythm and S1/S2; Negative Murmur, Rub or Gallop
GI: Soft, Nontender, Nondistended and Normal Bowel Sounds; Negative Organomegaly
Rectal: Deferred by Provider
Musculoskeletal: No Clubbing, No Cyanosis and No Edema
Skin: Negative Rash
Neuro: Nonfocal/Grossly Intact
[2024-11-25 17:22] LABS: Glucose - Point of Care 108 mg/dl (70-99)
[2024-11-25] MEDS: D5/0.45%NSS with KCL 40 MEQ IV (17:27)
[2024-11-25] MEDS: LOVENOX 40 MG SC (17:30)
--- NOTE | 2024-11-25 17:33 | PTCARENOTE ---
pt on reg diet. Pt had vomiting episodes x2 after eating lunch. Zofran given as ordered. plan of care ongoing.
[2024-11-25] MEDS: DILAUDID 0.5 MG IV (18:37)
[2024-11-25] MEDS: ZOLOFT PO (20:42)
[2024-11-25 21:23] LABS: Glucose - Point of Care 96 mg/dl (70-99)
[2024-11-25] MEDS: PEPCID 20 MG IV (21:48)
[2024-11-25] MEDS: NSS (PRESERVATIVE FREE) 8 ML IV (21:48)
[2024-11-26] MEDS: ZOFRAN 4 MG IV ×2 (00:38→08:32)
[2024-11-26] MEDS: DILAUDID 0.5 MG IV ×2 (00:38→08:32)
[2024-11-26 03:14] VITALS: BP 142/87
[2024-11-26 07:26] VITALS: BP 143/79
[2024-11-26] MEDS: NEURONTIN PO ×2 (08:05→22:20)
[2024-11-26] MEDS: WELLBUTRIN SR (12 hour sustained release) PO ×2 (08:05→12:33)
[2024-11-26] MEDS: NORVASC PO (08:05)
[2024-11-26 08:14] LABS: Glucose - Point of Care 80 mg/dl (70-99)
[2024-11-26] MEDS: NSS (PRESERVATIVE FREE) 10 ML IV ×2 (08:25→20:47)
[2024-11-26] MEDS: BETAMETHASONE VALERATE 0.1% CREAM 1 APPLIC TOPICAL ×2 (08:26→22:25)
[2024-11-26] MEDS: PROTONIX IV 40 MG IV ×2 (08:26→20:46)
--- NOTE | 2024-11-26 11:19 | CM ---
Reviewed the chart notes. CM continues to be available to patient/family and is monitoring medical plan for needs at discharge.
Plan: Discharge to home when medically stable. No needs anticipated at this time.
[2024-11-26 11:44] LABS: Glucose - Point of Care 73 mg/dl (70-99)
[2024-11-26 12:40] VITALS: BP 140/80
--- NOTE | 2024-11-26 13:09 | W.PN.GI.CBS2 ---
Today's Communication / Plan
-
Agree with trying reglan short term for possible post infxn IBS
D/C once resolved
Await path but EGD essentially negative
Assessment / Plan
-
43-year-old female with past medical history of hypertension, asthma, depression, chronic pain secondary to trigeminal neuralgia, thalassemia, fibroids of the uterus and menorrhagia presents the emergency room with acute onset of abdominal pain,
nausea vomiting and diarrhea. We are asked to evaluate after patient has not resolved with nausea, inability to tolerate p.o. with epigastric pain. The patient has been kept on pantoprazole 40 mg IV twice daily. Also famotidine 20 mg IV at
bedtime. CT abdomen pelvis with IV contrast on 11/23/2024 shows mild colitis involving transverse and descending colon. Patient without any further episodes of diarrhea since arrival in the ER.
11/25/24 EGD- gastric erythema bx'd, bx taken SB, esophagus
Impression:
Nausea/vomiting, possible post ifxn IBS
Initial sudden onset n/v/d followed by resolution of diarrhea. n/v persists
Significant NSAID use, ibuprofen 800 mg every 8 x 10 days last dose on 11/19/2024
Mildly elevated AST/ALT, improving
History of thalassemia
History of menorrhagia secondary to fibroids
Subjective
Subjective
Date of Service: November 26, 2024
Tried eating breakfast but had vomiting after. Denies abd pain
Objective
Data Reviewed
Laboratory Data:
Laboratory Results
11/25/24 06:54
11/25/24 06:54
Laboratory Results
Magnesium 1.9 mg/dl (1.6-2.3) 11/21/24 06:08
Total Bilirubin 0.5 mg/dl (0.2-1.3) 11/25/24 06:54
AST 52 U/L (14-36) H 11/25/24 06:54
ALT 46 U/L (0-35) H 11/25/24 06:54
Alkaline Phosphatase 80 U/L (38-126) 11/25/24 06:54
Lipase 26 U/L (23-300) 11/21/24 00:38
Vital Signs and I&O:
Vital Signs
Temp Pulse Resp BP Pulse Ox
98.6 F 82 18 140/80 100
11/26/24 12:40 11/26/24 12:40 11/26/24 12:40 11/26/24 12:40 11/26/24 12:40
I&O
11/25/24 11/26/24 11/27/24
06:59 06:59 06:59
Intake Total 2190 / 2190 240 / 240
Balance 2190 / 2190 240 / 240
Physical Exam
Physical Exam
GI: Soft, Non Distended and Non Tender
[2024-11-26] MEDS: STERILE WATER FOR INJECTION IV (13:14)
[2024-11-26] MEDS: LR 1000 IV ×2 (13:15→23:35)
--- NOTE | 2024-11-26 14:32 | W.PN.HOSP.TC ---
Today's Communication/Plan
-
Reglan
Monitor QTc
Start Compazine
IV fluids
Assessment / Plan
Assessment / Plan
Impression:
43-year-old female who presents with acute abdominal symptoms including abdominal pain nausea vomiting and diarrhea, normal labs, no fevers. She has a mild leukocytosis to 13. CT scan shows colitis but otherwise unrevealing. Clinical picture is
consistent with acute gastroenteritis of toxic or viral etiology. Currently not tolerating p.o. but exam is otherwise benign.
Acute gastroenteritis associated with severe nausea and vomiting
Mild transaminitis
Other conditions
Chronic iron deficiency anemia.
Leiomyomata uteri with excessive menopausal hemorrhage
Mild intermittent asthma.
Trigeminal neuralgia
History of cholecystectomy
Plan:
Concern for Acute gastroenteritis.
Persistent nausea and abdominal pain with no diarrhea.
Mildly elevated transaminases with normal lipase
Reports significant NSAID use as OP
CT scan of the abdomen and pelvis consistent with diffuse colitis
Mild leukocytosis with WBC of 13 which has resolved.
No diarrhea or BMS with low oral intake since admitted
Follow abd xray with no evidence for constipation or obstruction
EGD 11/25: Normal esophagus, gastric erythema, normal duodenum
Remains with persistent nausea and low oral intake. Suspected post infectious IBS
Continue PPI
And Reglan. Substitute antiemetics with Compazine discontinue Zofran
Monitor QTc
Attempt to advance diet
Maintain IV fluids
Mild elevation of transaminases, stable
Ultrasound normal
Non complicated UTI suspected secondary to dysuria
Empiric antibiotics ceftriaxone initiated 11/24
Urine cultures with no growth
Observe off antibiotics, ceftriaxone discontinued on 11/15
Chronic iron deficiency anemia.
Recent colonoscopy normal.
Has leiomyomata uterus with excessive perimenstrual hemorrhage.
Monitor hemoglobin
Mild intermittent asthma
Continue nebs as needed.
Essential hypertension
On Norvasc.
Trigeminal neuralgia./Depression
Continue gabapentin, bupropion Zoloft
DVT prophylaxis with Lovenox
Anticipated Discharge: 24 - 48 hours
Subjective/Interval History
-
Date of Service: November 26, 2024
Objective Data
-
Vital Signs:
Vital Signs
Temp Pulse Resp BP Pulse Ox
98.6 F 82 18 140/80 100
11/26/24 12:40 11/26/24 12:40 11/26/24 12:40 11/26/24 12:40 11/26/24 12:40
I&O
11/25/24 11/26/24 11/27/24
06:59 06:59 06:59
Intake Total 2190 / 2190 240 / 240
Balance 2190 / 2190 240 / 240
Physical Exam
-
General: Well Developed and No Apparent Distress
HEENT: Normocephalic, Atraumatic and Moist Mucous Membranes
Respiratory: Clear to Auscultation
Cardiac: Regular Rhythm and S1/S2; Negative Murmur, Rub or Gallop
GI: Soft, Nontender, Nondistended and Normal Bowel Sounds; Negative Organomegaly
Rectal: Deferred by Provider
Musculoskeletal: No Clubbing, No Cyanosis and No Edema
Skin: Negative Rash
Neuro: Nonfocal/Grossly Intact
[2024-11-26 15:27] VITALS: BP 135/80
[2024-11-26] MEDS: REGLAN 5 MG IV ×2 (16:58→22:24)
[2024-11-26] MEDS: LOVENOX 40 MG SC (17:00)
[2024-11-26 17:14] LABS: Glucose - Point of Care 67 mg/dl (70-99)
[2024-11-26 18:30] LABS: Glucose - Point of Care 83 mg/dl (70-99)
--- NOTE | 2024-11-26 18:30 | PTCARENOTE ---
Pt hypoglycemic at 67. 4 oz of fruit juice given along with nausea medication. Pt has been refusing all oral intake as she vomits it back up immediately. Pt refusing recheck of blood sugar 15 mins post initial stick, accucheck done at 1 hour and 15
minutes later. Acchucheck 83 now.
[2024-11-26 19:43] VITALS: BP 144/77
[2024-11-26] MEDS: ZOLOFT PO (20:45)
[2024-11-26 21:15] LABS: Glucose - Point of Care 84 mg/dl (70-99)
[2024-11-26] MEDS: PEPCID 20 MG IV (22:25)
[2024-11-26] MEDS: NSS (PRESERVATIVE FREE) 8 ML IV (22:25)
[2024-11-26 23:16] VITALS: BP 136/75
[2024-11-27] MEDS: DILAUDID 0.5 MG IV (03:03)
[2024-11-27] MEDS: COMPAZINE 5 MG IV ×2 (03:04→14:38)
[2024-11-27 03:23] VITALS: BP 135/88
[2024-11-27] MEDS: PROTONIX IV 40 MG IV ×2 (08:20→20:42)
[2024-11-27] MEDS: NSS (PRESERVATIVE FREE) 10 ML IV ×2 (08:21→20:42)
[2024-11-27] MEDS: REGLAN 5 MG IV ×3 (08:22→21:53)
[2024-11-27] MEDS: BETAMETHASONE VALERATE 0.1% CREAM 1 APPLIC TOPICAL ×2 (08:24→20:47)
[2024-11-27 08:32] VITALS: BP 145/87
[2024-11-27] MEDS: NEURONTIN PO ×2 (08:33→21:02)
[2024-11-27] MEDS: NORVASC PO (08:33)
[2024-11-27] MEDS: WELLBUTRIN SR (12 hour sustained release) PO ×2 (08:34→12:36)
[2024-11-27 09:34] LABS: Hematocrit 33.7 % (37.0-47.0); Hemoglobin 10.3 g/dL (12.0-16.0); Mean Corp Hgb Conc. 30.6 g/dL (33.0-37.0); Mean Corpuscular Volume 70.6 fL (81.0-99.0); Nucleated Red Blood Cells % 0 %; Platelet Count 330 10^3/uL (130-400); Red Cell Dist. Width 15.6 % (11.5-14.5)
[2024-11-27] MEDS: LR 1000 IV ×2 (09:54→20:27)
--- NOTE | 2024-11-27 09:57 | PTCARENOTE ---
Accucheck monitor not reading pt wristband this AM. Manual input error. Accucheck 83.
--- NOTE | 2024-11-27 10:25 | W.PN.GI.CBS2 ---
Today's Communication / Plan
-
Seems to be improving with addition of reglan
Still believe this represents post infectious IBS given sudden onset after n/v/d illness
Try POs today, but I ordered UGI/SBFT for tomorrow in case she does not continue to improve
Cancel study if improving
Assessment / Plan
-
43-year-old female with past medical history of hypertension, asthma, depression, chronic pain secondary to trigeminal neuralgia, thalassemia, fibroids of the uterus and menorrhagia presents the emergency room with acute onset of abdominal pain,
nausea vomiting and diarrhea. We are asked to evaluate after patient has not resolved with nausea, inability to tolerate p.o. with epigastric pain. The patient has been kept on pantoprazole 40 mg IV twice daily. Also famotidine 20 mg IV at
bedtime. CT abdomen pelvis with IV contrast on 11/23/2024 shows mild colitis involving transverse and descending colon. Patient without any further episodes of diarrhea since arrival in the ER.
11/25/24 EGD- gastric erythema bx'd, bx taken SB, esophagus
Impression:
Nausea/vomiting, possible post ifxn IBS
Initial sudden onset n/v/d followed by resolution of diarrhea. n/v persists
Significant NSAID use, ibuprofen 800 mg every 8 x 10 days last dose on 11/19/2024
Mildly elevated AST/ALT, improving
History of thalassemia
History of menorrhagia secondary to fibroids
Subjective
Subjective
Date of Service: November 27, 2024
Pt able to eat a little bit but still had vomiting. Sx are improving. Denies abd pain
Objective
Data Reviewed
Laboratory Data:
Laboratory Results
11/27/24 09:03
Laboratory Results
Magnesium 1.9 mg/dl (1.6-2.3) 11/21/24 06:08
Total Bilirubin 0.5 mg/dl (0.2-1.3) 11/25/24 06:54
AST 52 U/L (14-36) H 11/25/24 06:54
ALT 46 U/L (0-35) H 11/25/24 06:54
Alkaline Phosphatase 80 U/L (38-126) 11/25/24 06:54
Lipase 26 U/L (23-300) 11/21/24 00:38
Vital Signs and I&O:
Vital Signs
Temp Pulse Resp BP Pulse Ox
98.9 F 94 18 145/87 100
11/27/24 08:32 11/27/24 08:32 11/27/24 08:32 11/27/24 08:32 11/27/24 08:32
I&O
11/26/24 11/27/24 11/28/24
06:59 06:59 06:59
Intake Total 240 / 240 680 / 680
Balance 240 / 240 680 / 680
Physical Exam
Physical Exam
GI: Soft, Non Distended and Non Tender
[2024-11-27 10:57] LABS: ALT (SGPT) 44 U/L (0-35); AST (SGOT) 44 U/L (14-36); Albumin 3.4 g/dl (3.5-5.0); Alkaline Phosphatase 71 U/L (38-126); Blood Urea Nitrogen 7 mg/dl (7-17); Calcium 9.6 mg/dl (8.4-10.2); Carbon Dioxide 25 mmol/L (22-30); Chloride 107 mmol/L (98-107); Estimated Creatinine Clearance 97 ml/min; Glucose 73 mg/dl (70-99); Potassium 3.5 mmol/L (3.5-5.1); Sodium 137 mmol/L (135-145); Total Protein 6.1 g/dl (6.3-8.2); eGFR > 60.00
[2024-11-27 11:38] VITALS: BP 145/88
[2024-11-27 12:24] LABS: Glucose - Point of Care 82 mg/dl (70-99)
[2024-11-27 12:30] LABS: Glucose - Point of Care 81 mg/dl (70-99)
[2024-11-27] MEDS: STERILE WATER FOR INJECTION IV (12:36)
--- NOTE | 2024-11-27 13:04 | W.PN.HOSP.TC ---
Today's Communication/Plan
-
Reports some improvement with introduction of Reglan and Compazine.
Continue regular diet.
If not better will proceed with small bowel follow-through in a.m.
Assessment / Plan
Assessment / Plan
Impression:
43-year-old female who presents with acute abdominal symptoms including abdominal pain nausea vomiting and diarrhea, normal labs, no fevers. She has a mild leukocytosis to 13. CT scan shows colitis but otherwise unrevealing. Clinical picture is
consistent with acute gastroenteritis of toxic or viral etiology. Currently not tolerating p.o. but exam is otherwise benign.
Acute gastroenteritis associated with severe nausea and vomiting
Mild transaminitis
Other conditions
Chronic iron deficiency anemia.
Leiomyomata uteri with excessive menopausal hemorrhage
Mild intermittent asthma.
Trigeminal neuralgia
History of cholecystectomy
Plan:
Concern for Acute gastroenteritis.
Persistent nausea and abdominal pain with no diarrhea.
Mildly elevated transaminases with normal lipase
Reports significant NSAID use as OP
CT scan of the abdomen and pelvis consistent with diffuse colitis
Mild leukocytosis with WBC of 13 which has resolved.
No diarrhea or BMS with low oral intake since admitted
Follow abd xray with no evidence for constipation or obstruction
EGD 11/25: Normal esophagus, gastric erythema, normal duodenum
Remains with persistent nausea and low oral intake. Suspected post infectious IBS
Continue PPI
And Reglan. Substitute antiemetics with Compazine discontinue Zofran
Monitor QTc
Attempt to advance diet
Maintain IV fluids
Mild elevation of transaminases, stable
Ultrasound normal
Non complicated UTI suspected secondary to dysuria
Empiric antibiotics ceftriaxone initiated 11/24
Urine cultures with no growth
Observe off antibiotics, ceftriaxone discontinued on 11/15
Chronic iron deficiency anemia.
Recent colonoscopy normal.
Has leiomyomata uterus with excessive perimenstrual hemorrhage.
Monitor hemoglobin
Mild intermittent asthma
Continue nebs as needed.
Essential hypertension
On Norvasc.
Trigeminal neuralgia./Depression
Continue gabapentin, bupropion Zoloft
DVT prophylaxis with Lovenox
Anticipated Discharge: 24 - 48 hours
Subjective/Interval History
-
Date of Service: November 27, 2024
Objective Data
-
Labs:
Laboratory Results
11/27/24
09:03
WBC 4.5 L
Hgb 10.3 L
Hct 33.7 L
Plt Count 330
Sodium 137
Potassium 3.5
Chloride 107
Carbon Dioxide 25
BUN 7
Creatinine 0.7
Glucose 73
Calcium 9.6
Total Bilirubin 0.4
AST 44 H
ALT 44 H
Alkaline Phosphatase 71
Vital Signs:
Vital Signs
Temp Pulse Resp BP Pulse Ox
98.4 F 83 18 145/88 100
11/27/24 11:38 11/27/24 11:38 11/27/24 11:38 11/27/24 11:38 11/27/24 11:38
I&O
11/26/24 11/27/24 11/28/24
06:59 06:59 06:59
Intake Total 240 / 240 680 / 680
Balance 240 / 240 680 / 680
Physical Exam
-
General: Well Developed and No Apparent Distress
HEENT: Normocephalic, Atraumatic and Moist Mucous Membranes
Respiratory: Clear to Auscultation
Cardiac: Regular Rhythm and S1/S2; Negative Murmur, Rub or Gallop
GI: Soft, Nontender, Nondistended and Normal Bowel Sounds; Negative Organomegaly
Rectal: Deferred by Provider
Musculoskeletal: No Clubbing, No Cyanosis and No Edema
Skin: Negative Rash
Neuro: Nonfocal/Grossly Intact
--- NOTE | 2024-11-27 15:14 | CM ---
S/S slowly improving but did vomit, able to eat small amounts. IV/Reglan helping. UGI, SBFT for tomorrow if S/S aren't improved.
[2024-11-27 15:49] VITALS: BP 148/84
[2024-11-27 16:25] VITALS: BMI 29.5
[2024-11-27] MEDS: LOVENOX 40 MG SC (17:42)
[2024-11-27 17:50] LABS: Glucose - Point of Care 78 mg/dl (70-99)
[2024-11-27 19:00] VITALS: BP 143/78
[2024-11-27] MEDS: ZOLOFT PO (21:01)
[2024-11-27 21:05] LABS: Glucose - Point of Care 79 mg/dl (70-99)
[2024-11-27] MEDS: NSS (PRESERVATIVE FREE) 8 ML IV (21:50)
[2024-11-27] MEDS: PEPCID 20 MG IV (21:51)
[2024-11-27 23:05] VITALS: BP 136/78
[2024-11-28 03:07] VITALS: BP 135/77
[2024-11-28] MEDS: LR 1000 IV (06:22)
[2024-11-28 07:56] LABS: Hematocrit 33.4 % (37.0-47.0); Hemoglobin 10.6 g/dL (12.0-16.0); Mean Corp Hgb Conc. 31.7 g/dL (33.0-37.0); Mean Corpuscular Volume 70.5 fL (81.0-99.0); Nucleated Red Blood Cells % 0 %; Platelet Count 326 10^3/uL (130-400); Red Cell Dist. Width 15.4 % (11.5-14.5)
[2024-11-28 08:07] LABS: Glucose - Point of Care 70 mg/dl (70-99)
[2024-11-28 08:09] VITALS: BP 135/74
[2024-11-28 08:09] LABS: ALT (SGPT) 43 U/L (0-35); AST (SGOT) 38 U/L (14-36); Albumin 3.4 g/dl (3.5-5.0); Alkaline Phosphatase 77 U/L (38-126); Blood Urea Nitrogen 5 mg/dl (7-17); Calcium 10.1 mg/dl (8.4-10.2); Carbon Dioxide 28 mmol/L (22-30); Chloride 104 mmol/L (98-107); Estimated Creatinine Clearance 97 ml/min; Glucose 72 mg/dl (70-99); Potassium 3.7 mmol/L (3.5-5.1); Sodium 136 mmol/L (135-145); Total Protein 6.1 g/dl (6.3-8.2); eGFR > 60.00
[2024-11-28] MEDS: REGLAN 5 MG IV ×2 (08:37→15:11)
[2024-11-28] MEDS: DILAUDID 0.5 MG IV (08:38)
[2024-11-28] MEDS: NSS (PRESERVATIVE FREE) 10 ML IV (08:49)
[2024-11-28] MEDS: PROTONIX IV 40 MG IV (08:49)
--- NOTE | 2024-11-28 10:44 | CM ---
Addendum entered by Irvin Angela 11/28/24 15:41:
Discharge order noted. Pt is aware and she stated jher will transport home.
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
No after care VN needs identified.
D/C plan: home no needs. to transport.
Original Note:
CM following re: discharge planning.
Reviewed pt's chart.
Per chart review, pt admitted with Acute gastroenteritis associated with severe nausea and vomiting, continue supportive care.
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 The patient reports only DME is a nebulizer.
D/C plan: home with anticipated no needs. to transport at discharge.
CM will follow with discharge plan updates as hospitalization progresses
[2024-11-28] MEDS: COMPAZINE 5 MG IV (11:33)
[2024-11-28 11:55] LABS: Glucose - Point of Care 66 mg/dl (70-99)
[2024-11-28 11:56] VITALS: BP 131/80
[2024-11-28] MEDS: DEXTROSE 50% SYRINGE 12.5 GRAMS IV (11:58)
[2024-11-28] MEDS: NEURONTIN PO (12:03)
[2024-11-28] MEDS: NORVASC PO (12:03)
[2024-11-28] MEDS: WELLBUTRIN SR (12 hour sustained release) PO ×2 (12:04→14:53)
[2024-11-28 12:22] LABS: Glucose - Point of Care 114 mg/dl (70-99)
--- NOTE | 2024-11-28 12:43 | W.PN.HOSP.TC ---
Today's Communication/Plan
-
Reports improvement of symptoms.
Small bowel follow-through pending.
Resume diet and reassess
Assessment / Plan
Assessment / Plan
Impression:
43-year-old female who presents with acute abdominal symptoms including abdominal pain nausea vomiting and diarrhea, normal labs, no fevers. She has a mild leukocytosis to 13. CT scan shows colitis but otherwise unrevealing. Clinical picture is
consistent with acute gastroenteritis of toxic or viral etiology. Currently not tolerating p.o. but exam is otherwise benign.
Acute gastroenteritis associated with severe nausea and vomiting
Mild transaminitis
Other conditions
Chronic iron deficiency anemia.
Leiomyomata uteri with excessive menopausal hemorrhage
Mild intermittent asthma.
Trigeminal neuralgia
History of cholecystectomy
Plan:
Concern for Acute gastroenteritis.
Persistent nausea and abdominal pain with no diarrhea.
Mildly elevated transaminases with normal lipase
Reports significant NSAID use as OP
CT scan of the abdomen and pelvis consistent with diffuse colitis
Mild leukocytosis with WBC of 13 which has resolved.
No diarrhea or BMS with low oral intake since admitted
Follow abd xray with no evidence for constipation or obstruction
EGD 11/25: Normal esophagus, gastric erythema, normal duodenum
Remains with persistent nausea and low oral intake. Suspected post infectious IBS
Continue PPI
And Reglan. Substitute antiemetics with Compazine discontinue Zofran
Monitor QTc: Normal
Diet May advance to regular with improved nausea over the last 24 to 48 hours
Small bowel follow-through pending
Mild elevation of transaminases, stable
Ultrasound normal
Non complicated UTI suspected secondary to dysuria
Empiric antibiotics ceftriaxone initiated 11/24
Urine cultures with no growth
Observe off antibiotics, ceftriaxone discontinued on 11/15
Chronic iron deficiency anemia.
Recent colonoscopy normal.
Has leiomyomata uterus with excessive perimenstrual hemorrhage.
Monitor hemoglobin
Mild intermittent asthma
Continue nebs as needed.
Essential hypertension
On Norvasc.
Trigeminal neuralgia./Depression
Continue gabapentin, bupropion Zoloft
DVT prophylaxis with Lovenox
Anticipated Discharge: 24 - 48 hours
Subjective/Interval History
-
Date of Service: November 28, 2024
Objective Data
-
Labs:
Laboratory Results
11/28/24
07:15
WBC 4.8
Hgb 10.6 L
Hct 33.4 L
Plt Count 326
Sodium 136
Potassium 3.7
Chloride 104
Carbon Dioxide 28
BUN 5 L
Creatinine 0.7
Glucose 72
Calcium 10.1
Total Bilirubin 0.4
AST 38 H
ALT 43 H
Alkaline Phosphatase 77
Vital Signs:
Vital Signs
Temp Pulse Resp BP Pulse Ox
98.3 F 77 16 131/80 100
11/28/24 11:56 11/28/24 11:56 11/28/24 11:56 11/28/24 11:56 11/28/24 11:56
I&O
11/27/24 11/28/24 11/29/24
06:59 06:59 06:59
Intake Total 680 / 680 2770 / 2770
Balance 680 / 680 2770 / 2770
Physical Exam
-
General: Well Developed and No Apparent Distress
HEENT: Normocephalic, Atraumatic and Moist Mucous Membranes
Respiratory: Clear to Auscultation
Cardiac: Regular Rhythm and S1/S2; Negative Murmur, Rub or Gallop
GI: Soft, Nontender, Nondistended and Normal Bowel Sounds; Negative Organomegaly
Rectal: Deferred by Provider
Musculoskeletal: No Clubbing, No Cyanosis and No Edema
Skin: Negative Rash
Neuro: Nonfocal/Grossly Intact
--- NOTE | 2024-11-28 14:47 | W.DS.TRANS ---
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
-
Discharge Instructions:
Discharge Diagnosis/Procedures Acute gastroenteritis with postinfectious ileus
Diet Regular
Instructions:
Stand-Alone Forms:
Changes to Home Medications: Yes
Discharge Medications:
DC Medications w/original date entered in [employer]
albuterol sulfate 90 mcg/actuation aerosol inhaler (Ventolin HFA) 2 puff inhalation QID PRN Asthma 09/27/21
amlodipine 10 mg tablet 10 mg PO DAILY Blood Pressure 09/27/21
gabapentin 100 mg tablet 200 mg PO DAILY Neurological Condition 09/27/21
ibuprofen 200 mg tablet 800 mg PO Q8H Pain 09/27/21
sertraline 100 mg tablet 200 mg PO DAILY Depression 09/27/21
tramadol 50 mg tablet 50 mg PO Q8H PRN pain 09/27/21
bupropion HCl 100 mg tablet,12 hr sustained-release (Wellbutrin SR) 100 mg PO BID Depression 10/05/22
gabapentin 400 mg tablet 400 mg PO HS Neurological Condition 10/05/22
metoclopramide HCl 5 mg tablet (Reglan) 5 mg PO AC #21 tabs 11/28/24
prochlorperazine maleate 5 mg tablet (Compazine) 5 mg PO TID PRN nausea and vomiting #20 tabs 11/28/24
Home Medication Changes
Reglan and Compazine added
Pending Results: No
[2024-11-28] MEDS: BETAMETHASONE VALERATE 0.1% CREAM TOPICAL (14:53)
--- NOTE | 2024-11-28 15:08 | W.PN.GI.CBS2 ---
Today's Communication / Plan
-
diet as tolerated
Assessment / Plan
-
43-year-old female with past medical history of hypertension, asthma, depression, chronic pain secondary to trigeminal neuralgia, thalassemia, fibroids of the uterus and menorrhagia presents the emergency room with acute onset of abdominal pain,
nausea vomiting and diarrhea. We are asked to evaluate after patient has not resolved with nausea, inability to tolerate p.o. with epigastric pain. The patient has been kept on pantoprazole 40 mg IV twice daily. Also famotidine 20 mg IV at
bedtime. CT abdomen pelvis with IV contrast on 11/23/2024 shows mild colitis involving transverse and descending colon. Patient without any further episodes of diarrhea since arrival in the ER.
11/25/24 EGD- gastric erythema bx'd, bx taken SB, esophagus
Impression:
N/v likely postinfectious which is improving
plan:
continue low dose reglan prn. The patient is aware of the potential central nervous effects of Reglan but I did discuss with her that she will be taking a low dose and will be short-term. She is agreeable to using it at necessary times for now
Po as tolerated
SBFT overall normal
will sign off call with questions.
Subjective
Subjective
Date of Service: November 28, 2024
Pt feeling better on reglan, did eat a small amount yesterday. has been NPO for SBFT
Objective
Data Reviewed
Laboratory Data:
Laboratory Results
11/28/24 07:15
11/28/24 07:15
Laboratory Results
Magnesium 1.9 mg/dl (1.6-2.3) 11/21/24 06:08
Total Bilirubin 0.4 mg/dl (0.2-1.3) 11/28/24 07:15
AST 38 U/L (14-36) H 11/28/24 07:15
ALT 43 U/L (0-35) H 11/28/24 07:15
Alkaline Phosphatase 77 U/L (38-126) 11/28/24 07:15
Lipase 26 U/L (23-300) 11/21/24 00:38
Vital Signs and I&O:
Vital Signs
Temp Pulse Resp BP Pulse Ox
98.3 F 77 16 131/80 100
11/28/24 11:56 11/28/24 11:56 11/28/24 11:56 11/28/24 11:56 11/28/24 11:56
I&O
11/27/24 11/28/24 11/29/24
06:59 06:59 06:59
Intake Total 680 / 680 2770 / 2770
Balance 680 / 680 2770 / 2770
Physical Exam
Physical Exam
GI: Soft and Non Distended
[2024-11-28 15:36] VITALS: BP 142/88
[2024-11-28] MEDS: STERILE WATER FOR INJECTION IV (16:00)
== END 2024-11-28 18:52 | disposition home or self-care (01) | DRG 392 ==
LOC: 2 NORTH 07:57
PROVIDERS: Hospitalist; Nurse Practitioner Family; Specialist; Student in an Organized Health Care Education/Training Program; ADMITTING PHYSICIAN Internal Medicine; ATTENDING PHYSICIAN Internal Medicine; CONSULT PHYSICIAN Internal Medicine Gastroenterology; EMERGENCY PHYSICIAN Emergency Medicine; FAMILY PHYSICIAN Nurse Practitioner Family
PROC: 0DB18ZX Excision of Upper Esophagus, Via Natural or Artificial Opening Endoscopic, Diagnostic (ICD-10-PCS; 2024-11-25)
PROC: 0DB98ZX Excision of Duodenum, Via Natural or Artificial Opening Endoscopic, Diagnostic (ICD-10-PCS; 2024-11-25)
PROC: 0DB38ZX Excision of Lower Esophagus, Via Natural or Artificial Opening Endoscopic, Diagnostic (ICD-10-PCS; 2024-11-25)
PROC: 0DB78ZX Excision of Stomach, Pylorus, Via Natural or Artificial Opening Endoscopic, Diagnostic (ICD-10-PCS; 2024-11-25)
PROC: 0DB68ZX Excision of Stomach, Via Natural or Artificial Opening Endoscopic, Diagnostic (ICD-10-PCS; 2024-11-25)
DX: A08.39 Other viral enteritis (principal); K56.7 Ileus, unspecified; I10 Essential (primary) hypertension; F32.A Depression, unspecified; G89.29 Other chronic pain; J45.20 Mild intermittent asthma, uncomplicated; K58.1 Irritable bowel syndrome with constipation; G50.0 Trigeminal neuralgia; D56.9 Thalassemia, unspecified; K21.9 Gastro-esophageal reflux disease without esophagitis; R74.01 Elevation of levels of liver transaminase levels; D25.9 Leiomyoma of uterus, unspecified; N92.0 Excessive and frequent menstruation with regular cycle; D50.9 Iron deficiency anemia, unspecified; R13.10 Dysphagia, unspecified; K31.89 Other diseases of stomach and duodenum; Z90.49 Acquired absence of other specified parts of digestive tract; Z79.85 Long-term (current) use of injectable non-insulin antidiabetic drugs; Z80.0 Family history of malignant neoplasm of digestive organs; Z79.899 Other long term (current) drug therapy
CPT/HCPCS: 74019; 74177; 74246; 74248; 76700; 80048; 80053; 81003; 81015; 82248; 82728; 82962; 83036; 83540; 83550; 83690; 83735; 84703; 85025; 85027; 87086; 88305; 88342; 93005; 96361; 96365; 96375; 96376; 99285; Q9967

== ENCOUNTER → 2025-01-06 07:55 | Outpatient (REF) | payer OTHER, BC, SELFPAY | LOC: HWRAD 07:55 | PROVIDERS: ATTENDING PHYSICIAN Obstetrics & Gynecology; FAMILY PHYSICIAN Nurse Practitioner Family | DX: N93.9 Abnormal uterine and vaginal bleeding, unspecified (principal) | CPT/HCPCS: 76830; 76856 ==